=== PATIENT | female | born 1995 | race African-American/Black ===

== ENCOUNTER 2018-09-04 20:08 | Emergency (ER) | payer BC ==
[~2018-09-04] VITALS: Ht 162.6 cm; Wt 100.0 kg
[2018-09-04 20:14] VITALS: Ht 162.6 cm; Wt 100.0 kg
[2018-09-04] MEDS ORDERED: HYDROCHLOROTHIA25 MG PO (20:14)
[2018-09-04 20:49] LABS: BASOPHILS 0.3 % (0-2); EOSINOPHILS 0.8 % (0-7); HEMATOCRIT 42.5 % (36.0-48.0); HEMOGLOBIN 14.3 g/dL (12-16); IMMATURE GRANULOCYTES 0.1 % (0-5); LYMPHOCYTES 37.8 % (15-50); MCH 29.5 pg (26.0-34.0); MCHC 33.6 g/dL (31.0-37.0); MCV 87.8 fL (80.0-100.0); MEAN PLATELET VOLUME 10.2 fL (7.4-10.4); PLATELET COUNT 281 10x3/uL (130-400); RBC 4.84 10x6/uL (4.00-5.40); RDW 14.3 % (11.5-14.5); WBC 8.9 10x3/uL (4.8-10.8)
[2018-09-04 20:55] LABS: APPEARANCE CLEAR (CLEAR); BILIRUBIN NEGATIVE (NEGATIVE); COLOR YELLOW (YELLOW); GLUCOSE NEGATIVE (NEGATIVE); KETONE NEGATIVE (NEGATIVE); NITRITE NEGATIVE (NEGATIVE); PROTEIN NEGATIVE (NEGATIVE); UROBILINOGEN NORMAL (NORMAL)
[2018-09-04 21:07] LABS: ALBUMIN 3.8 g/dL (3.4-5.0); ALKALINE PHOSPHATASE 77 U/L (46-116); ALT (SGPT) 36 U/L (10-68); BILIRUBIN - TOTAL 0.37 mg/dL (0.2-1.3); CALC OSMOLALITY 276 mosm/kg (275-300); CALCIUM 8.9 mg/dL (8.5-10.1); CARBON DIOXIDE 27.2 mmol/L (21.0-32.0); CHLORIDE - SERUM 101 mmol/L (98-107); CREATININE - SERUM 0.9 mg/dL (0.6-1.3); GLUCOSE 89 mg/dL (74-106); POTASSIUM - SERUM 3.1 mmol/L (3.5-5.1); SODIUM 139 mmol/L (136-145); UREA NITROGEN 13 mg/dL (7-18); eGFR NON AFRICAN AMERICAN 81 mL/min (90-120)
[2018-09-04 21:15] LABS: AMYLASE - SERUM 124 U/L (25-115); LIPASE 120 U/L (73-393)
[2018-09-04 21:20] LABS: TROPONIN-I < 0.017 ng/mL (0.000-0.060)
[2018-09-04 21:43] LABS: HCG URINE NEGATIVE (NEGATIVE)
[2018-09-04] MEDS ORDERED: CARAFATE1 G PO (23:48)
[2018-09-04] MEDS ORDERED: CYCLOBENZAPRINE10 MG PO (23:48)
[2018-09-04] MEDS ORDERED: LEVSIN/ANASP0.125 MG PO (23:48)
[2018-09-04] MEDS ORDERED: ACETAMINOPHEN500 M1 PO (23:48)
[2018-09-04 23:56] VITALS: BP 128/79
== END 2018-09-04 23:56 | disposition home or self-care (01) ==
LOC: D.ER 20:08
PROVIDERS: Family Medicine
DX: K21.9 Gastro-esophageal reflux disease without esophagitis (principal); R10.13 Epigastric pain; I10 Essential (primary) hypertension

== ENCOUNTER 2018-10-16 21:32 | Emergency (ER) | payer SELFPAY ==
[~2018-10-16] VITALS: Ht 162.6 cm; Wt 100.9 kg
[~2018-10-16 21:32] MED LIST: ACETAMINOPHEN500 M1 PO; CARAFATE1 G PO; CYCLOBENZAPRINE10 MG PO; HYDROCHLOROTHIA25 MG PO; LEVSIN/ANASP0.125 MG PO
[2018-10-16 21:48] VITALS: Ht 162.6 cm; Wt 100.9 kg
[2018-10-16 22:49] LABS: BASOPHILS 0.4 % (0-2); EOSINOPHILS 1.4 % (0-7); HEMATOCRIT 41.1 % (36.0-48.0); HEMOGLOBIN 14.1 g/dL (12-16); IMMATURE GRANULOCYTES 0.4 % (0-5); LYMPHOCYTES 49.5 % (15-50); MCHC 34.3 g/dL (31.0-37.0); MCV 84.6 fL (80.0-100.0); MEAN PLATELET VOLUME 9.9 fL (7.4-10.4); MONOCYTES 11.2 % (2-11); NEUTROPHILS 37.1 % (40-80); PLATELET COUNT 315 10x3/uL (130-400); RBC 4.86 10x6/uL (4.00-5.40); RDW 13.8 % (11.5-14.5); WBC 8.6 10x3/uL (4.8-10.8)
[2018-10-16 22:56] LABS: APPEARANCE CLEAR (CLEAR); BILIRUBIN NEGATIVE (NEGATIVE); COLOR YELLOW (YELLOW); GLUCOSE NEGATIVE (NEGATIVE); HCG URINE POSITIVE (NEGATIVE); KETONE NEGATIVE (NEGATIVE); NITRITE NEGATIVE (NEGATIVE); PROTEIN NEGATIVE (NEGATIVE); UROBILINOGEN NORMAL (NORMAL)
[2018-10-16 23:06] LABS: ALBUMIN 3.7 g/dL (3.4-5.0); ALKALINE PHOSPHATASE 85 U/L (46-116); ALT (SGPT) 16 U/L (10-68); BILIRUBIN - TOTAL 0.28 mg/dL (0.2-1.3); CALC OSMOLALITY 278 mosm/kg (275-300); CALCIUM 8.8 mg/dL (8.5-10.1); CARBON DIOXIDE 25.6 mmol/L (21.0-32.0); CHLORIDE - SERUM 104 mmol/L (98-107); GLUCOSE 93 mg/dL (74-106); POTASSIUM - SERUM 3.5 mmol/L (3.5-5.1); PROTEIN - SERUM 8.3 g/dL (6.4-8.2); SODIUM 140 mmol/L (136-145); UREA NITROGEN 13 mg/dL (7-18); eGFR NON AFRICAN AMERICAN 72 mL/min (90-120)
[2018-10-16 23:12] LABS: AMYLASE - SERUM 105 U/L (25-115); HCG - QUANTITATIVE (MATERNAL) 211 mIU/mL; LIPASE 158 U/L (73-393)
[2018-10-16 23:14] LABS: TROPONIN-I < 0.017 ng/mL (0.000-0.060)
[2018-10-17] MEDS ORDERED: ZOFRAN ODT4 MG/UDTAB PO (00:17)
[2018-10-17] MEDS ORDERED: PEPCID AC20 MG PO (00:17)
[2018-10-17 00:26] VITALS: BP 124/90
== END 2018-10-17 00:27 | disposition home or self-care (01) ==
LOC: D.ER 21:32
PROVIDERS: Family Medicine
DX: O99.611 Diseases of the digestive system complicating pregnancy, first trimester (principal); K92.89 Other specified diseases of the digestive system; Z3A.08 8 weeks gestation of pregnancy; K21.9 Gastro-esophageal reflux disease without esophagitis; R10.11 Right upper quadrant pain

== ENCOUNTER → 2019-04-25 14:29 | Outpatient (CLI) | payer SELFPAY ==
[2018-10-16 21:48] VITALS: BMI 38.2
[~2019-04-25 14:29] MED LIST changes: +PEPCID AC20 MG PO; +ZOFRAN ODT4 MG/UDTAB PO
[2019-04-25 14:54] LABS: BASOPHILS 0.2 % (0-2); EOSINOPHILS 1.2 % (0-7); HEMATOCRIT 31.4 % (36.0-48.0); HEMOGLOBIN 10.7 g/dL (12-16); IMMATURE GRANULOCYTES 1.2 % (0-5); LYMPHOCYTES 26.4 % (15-50); MCH 27.3 pg (26.0-34.0); MCHC 34.1 g/dL (31.0-37.0); MCV 80.1 fL (80.0-100.0); MEAN PLATELET VOLUME 10.1 fL (7.4-10.4); MONOCYTES 10.9 % (2-11); NEUTROPHILS 60.1 % (40-80); RBC 3.92 10x6/uL (4.00-5.40); RDW 13.2 % (11.5-14.5)
[2019-04-25 14:56] LABS: PLATELET COUNT 220 10x3/uL (130-400)
[2019-04-25 15:32] LABS: ALBUMIN 2.6 g/dL (3.4-5.0); ALKALINE PHOSPHATASE 133 U/L (46-116); ALT (SGPT) 26 U/L (10-68); BILIRUBIN - INDIRECT 0.19 mg/dL (0.00-1.00); BILIRUBIN - TOTAL 0.23 mg/dL (0.2-1.3); CALC OSMOLALITY 273 mosm/kg (275-300); CALCIUM 8.2 mg/dL (8.5-10.1); CARBON DIOXIDE 22.1 mmol/L (21.0-32.0); CHLORIDE - SERUM 105 mmol/L (98-107); CREATININE - SERUM 0.6 mg/dL (0.6-1.3); GLUCOSE 95 mg/dL (74-106); POTASSIUM - SERUM 3.9 mmol/L (3.5-5.1); PROTEIN - SERUM 6.4 g/dL (6.4-8.2); SODIUM 138 mmol/L (136-145); UREA NITROGEN 8 mg/dL (7-18); URIC ACID 3.2 mg/dL (2.6-7.2); eGFR NON AFRICAN AMERICAN > 90 mL/min (90-120)
[2019-04-25 15:33] LABS: BILIRUBIN - DIRECT 0.04 mg/dL (0.00-0.30)
[2019-04-25 17:05] LABS: APPEARANCE CLEAR (CLEAR); BILIRUBIN NEGATIVE (NEGATIVE); COLOR YELLOW (YELLOW); GLUCOSE NEGATIVE (NEGATIVE); KETONE NEGATIVE (NEGATIVE); NITRITE NEGATIVE (NEGATIVE); PROTEIN NEGATIVE (NEGATIVE); SPECIFIC GRAVITY 1.015 (1.005-1.020); UROBILINOGEN NORMAL (NORMAL)
== END | disposition home or self-care (01) ==
LOC: D.LDO 14:29
PROVIDERS: ATTEND Student in an Organized Health Care Education/Training Program
DX: O26.90 Pregnancy related conditions, unspecified, unspecified trimester (principal)

== ENCOUNTER → 2019-05-01 09:03 | Outpatient (CLI) | payer BC ==
[2018-10-16 21:48] VITALS: BMI 38.2
== END | disposition home or self-care (01) ==
LOC: D.LDO 09:03
PROVIDERS: ATTEND Obstetrics & Gynecology
DX: O26.893 Other specified pregnancy related conditions, third trimester (principal); Z3A.32 32 weeks gestation of pregnancy

== ENCOUNTER → 2019-05-29 15:38 | Outpatient (CLI) | payer BC ==
[2018-10-16 21:48] VITALS: BMI 38.2
[2019-06-16 21:00] VITALS: BMI 43.0
== END | disposition home or self-care (01) ==
LOC: D.LDO 15:38
PROVIDERS: ATTEND Student in an Organized Health Care Education/Training Program
DX: O16.9 Unspecified maternal hypertension, unspecified trimester (principal)

== ENCOUNTER → 2019-06-04 15:57 | Outpatient (CLI) | payer BC ==
[2018-10-16 21:48] VITALS: BMI 38.2
[2019-06-16 21:00] VITALS: BMI 43.0
== END | disposition home or self-care (01) ==
LOC: D.LDO 15:57
PROVIDERS: ATTEND Student in an Organized Health Care Education/Training Program
DX: O35.9XX0 Maternal care for (suspected) fetal abnormality and damage, unspecified, not applicable or unspecified (principal)

== ENCOUNTER 2019-06-11 10:55 | Outpatient (CLI) | payer BC ==
[2018-10-16 21:48] VITALS: BMI 38.2
[2019-06-16 21:00] VITALS: BMI 43.0
== END 2019-06-11 11:35 | disposition home or self-care (01) ==
LOC: D.LDO 10:55
PROVIDERS: ATTEND Student in an Organized Health Care Education/Training Program
DX: O47.1 False labor at or after 37 completed weeks of gestation (principal); Z3A.38 38 weeks gestation of pregnancy

== ENCOUNTER 2019-06-16 20:23 | Inpatient (IN) | payer BC, MEDICAID ==
[~2019-06-16] VITALS: Ht 162.6 cm; Wt 113.4 kg
[2019-06-16 21:00] VITALS: BP 120/80; Ht 162.6 cm; Wt 113.4 kg
[2019-06-16 21:03] LABS: HEMATOCRIT 33.3 % (36.0-48.0); HEMOGLOBIN 10.6 g/dL (12-16); MCH 25.1 pg (26.0-34.0); MCHC 31.8 g/dL (31.0-37.0); MCV 78.7 fL (80.0-100.0); MEAN PLATELET VOLUME 10.3 fL (7.4-10.4); RBC 4.23 10x6/uL (4.00-5.40); RDW 14.6 % (11.5-14.5); WBC 7.6 10x3/uL (4.8-10.8)
[2019-06-16 21:04] LABS: APPEARANCE CLEAR (CLEAR); BILIRUBIN NEGATIVE (NEGATIVE); COLOR YELLOW (YELLOW); GLUCOSE NEGATIVE (NEGATIVE); KETONE NEGATIVE (NEGATIVE); NITRITE NEGATIVE (NEGATIVE); PROTEIN NEGATIVE (NEGATIVE); SPECIFIC GRAVITY 1.015 (1.005-1.020); UROBILINOGEN NORMAL (NORMAL)
[2019-06-16 21:06] LABS: BACTERIA MANY /hpf (NEGATIVE); EPITHELIAL CELLS 0-5 /hpf (0-5); RED CELLS - URINE 0-5 /hpf (0-5); WHITE CELLS - URINE 0-5 /hpf (NEGATIVE)
--- NOTE | 2019-06-18 04:19 | NUR ---
PT AMBULATED TO ROOM 1273 FOR CARE AT THIS TIME
--- NOTE | 2019-06-18 04:45 | NUR ---
PT UP TO SHOWER, SIGNIFICANT OTHER AT HER SIDE FOR ASSISTANCE. ENCOURAGED TO CALL WITH ANY NEEDS. WILL CONTINUE TO MONITOR.
[2019-06-18 07:13] LABS: RAPID PLASMA REAGIN Non Reactive (Non Reactive)
[2019-06-18 07:14] VITALS: BP 116/65
--- NOTE | 2019-06-18 07:14 | NUR ---
RECEIVED PT LYING IN SEMI-CALABRESE'S POSITION. PT AWAKE. VSS. HRRR WITHOUT AUDIBLE MURMUR. BBS CLEAR. BS X 4. ABDOMEN SOFT/NON-DISTENDED. FUNDUS FIRM AT U/1. RUBRA LOCHIA SMALL AMT. PT DENIES HEAVY BLEEDING OR PASSING CLOTS. PT INSTRUCTED TO NOTIFY NURSE OF HEAVY BLEEDING, SOAKING PERIPAD IN ONE HOUR, PASSING CLOTS SIZE OF EGG OR BIGGER. PERINEUM WITHOUT EDEMA. NEG HOMANS' SIGN. PPP. NO EDEMA NOTED TO BLE. SL SITE CLEAR. PT DENIES PAIN OR NEEDS. SR UP X2. CALL LIGHT IN REACH.
--- NOTE | 2019-06-18 08:51 | NUR ---
Nicolette Avendano [birth year] S: Patient states this is her first baby. She delivered late last night. has ate twice since . Last time was around 2 something this morning. has done really good with latching. She latches about 15 mintues. Denies pain or discomfort with latching . States when infant came in nursery this morning she was awake but it has been hard to wake her to nurse. Thanked CLC for showing different positions with and educational. Verbally agrees to work on comfortable latching positions for her and . Denies questions or concerns at this time. O: Patient sitting up in bed attempting to breastfeed infant in cradle position on the right breast. Infant is sleeping and family member at bedside talking and trying to help stimulate to wake. Praised for . Informed patient takes time, practice, and patience. Explained breastmilk composition, supply and demand, positions, how to verify is latched correctly, and ways to stimulate infant to wake to feed. Explain skin to skin and encouraged to help with infant led . Infant was placed on patient for skin to skin. would move her head, suck on mom chest and moved her entire body to the right breast. Patient helped position in laid back position. Infant would attempt to suck but stopped. Infant did this several times. Encouraged patient to give it some time is capable to latch, she just needs some time. Asked if any questions or concerns? Please let nursery staff know if any questions concerns or if you need help with . A: Patient first baby, learning how to breastfeed with . P: Continue to promote exclusively . Zach Watkins, [facility]
--- NOTE | 2019-06-18 09:26 | NUR ---
MOTRIN 600MG, GIVEN PO, FOR COMPLAINTS OF 3-4/10 ABDOMINAL BURNING, STINGING, CRAMPING PAIN. DENIES NEED FOR ANYTHING. SIDE RAILS X2, BED IN LOWEST POSITION, CALL LIGHT WITHIN REACH. UP AD CHRISTIAN. DESIRES PONCHO. IZA FRANCO, [facility] ADNS.
--- NOTE | 2019-06-18 11:00 | NUR ---
PT SITTING UP IN BED. VISITS WITH FAMILY. DENIES C/O OR NEEDS.
[2019-06-18 12:15] VITALS: BP 108/68
--- NOTE | 2019-06-18 12:15 | NUR ---
PT SITTING UP IN BED. VSS. PT DENIES HEAVY BLEEDING. RUBRA SEROSA NOTED TO PERIPAD. PT DENIES PAIN OR NEEDS.
--- NOTE | 2019-06-18 13:45 | NUR ---
PT LYING SUPINE IN BED. WAKES UPON ENTERING ROOM. DENIES NEEDS OR C/O.
--- NOTE | 2019-06-18 15:00 | NUR ---
PT SITTING UPRIGHT IN BED. VISITS WITH FAMILY. DENIES HEAVY BLEEDING OR PASSING CLOTS. DENIES PAIN OR NEEDS.
--- NOTE | 2019-06-18 17:00 | NUR ---
DR ISLAS VISITS WITH PT.
--- NOTE | 2019-06-18 17:11 | NUR ---
PT REQUESTS AND RECEIVES PERIPADS AND PANTIES. DENIES PAIN OR OTHER C/O.
--- NOTE | 2019-06-18 19:56 | NUR ---
PT REQUEST A MOTRIN. SHE STATES SHE IS HURTING WITH A PAIN LEVEL OF 5.
--- NOTE | 2019-06-18 20:15 | NUR ---
MOTRIN 600 MG GIVEN PO.
[2019-06-18 20:21] VITALS: BP 126/80
--- NOTE | 2019-06-18 21:15 | NUR ---
PT IS DOING WELL. FAMILY AT BEDSIDE. INDEPENDENT IN ROOM. NO C/O OR NEEDS AT THIS TIME.
--- NOTE | 2019-06-18 22:20 | NUR ---
PT DOING WELL. NO C/O OR NEEDS.
--- NOTE | 2019-06-19 00:10 | NUR ---
NO C/O AT THIS TIME. NO NEEDS. PT RESTING WELL.
--- NOTE | 2019-06-19 01:42 | NUR ---
PT SITTING UP IN BED, FAMILY REMAINS AT BEDSIDE FOR SUPPORT. IN OPEN CRIB AT BEDSIDE. PT DENIES PAIN OR NEEDS AT THIS TIME, WILL CONTINUE TO MONITOR.
--- NOTE | 2019-06-19 03:35 | NUR ---
PATIENT SITTING UP IN BED , TOILET PAPER PROVIDED PER REQUEST, NO FURTHER NEEDS IDENTIFIED. WILL CONTINUE TO MONITOR
--- NOTE | 2019-06-19 05:00 | NUR ---
PT IS RESTING WELL WITHOUT C/O. NO C/O PAIN OR DISCOMFORT. NO NEEDS AT THIS TIME.
[2019-06-19 06:25] LABS: BASOPHILS 0.2 % (0-2); EOSINOPHILS 1.7 % (0-7); HEMATOCRIT 29.6 % (36.0-48.0); HEMOGLOBIN 9.2 g/dL (12-16); IMMATURE GRANULOCYTES 0.9 % (0-5); LYMPHOCYTES 34.1 % (15-50); MCH 24.7 pg (26.0-34.0); MCHC 31.1 g/dL (31.0-37.0); MCV 79.6 fL (80.0-100.0); MEAN PLATELET VOLUME 10.2 fL (7.4-10.4); NEUTROPHILS 53.1 % (40-80); PLATELET COUNT 282 10x3/uL (130-400); RBC 3.72 10x6/uL (4.00-5.40); RDW 14.6 % (11.5-14.5); WBC 10.1 10x3/uL (4.8-10.8)
--- NOTE | 2019-06-19 07:00 | NUR ---
dr johnson here to see pt.
[2019-06-19 08:01] VITALS: BP 125/82
--- NOTE | 2019-06-19 08:07 | NUR ---
SITTING UP IN BED. ASSESSMENT DONE. DENIES PAIN- DENIES NEEDS. FUNDUS UU/FIRM.SCANT LOCHIA NOTED ON PAD. SALINE LOCK REMOVED WITH CATH TIP INTACT-PRESSURE HELD AND BANDAIDE APPLIED.
--- NOTE | 2019-06-19 08:20 | NUR ---
Nicolette Avendano [birth year] S: Patient states is going well. ate recently for 15 minutes on one breast and 20 minutes on the other. Denies nipple pain with . States she will be discharged tomorrow. Verbally agrees to let nursery staff know if any questions or concerns about . O: Patient sitting up in bed eating breakfast. FOB holding on sofa. Family member in room also Asked how are things going with ? Any concerns with sore nipples or pain with latching infant? Encouraged to continue to observe feeding cues and practice responsive feeeding. Infant should nurse 8-12 times in 24 hours. Please let nursery staff know if any questions or concerns regarding . A: Patient appears confident with due to no questions or concerns. P: Continue to promote exclusively during hospital visit. Zach Watkins, CLC
--- NOTE | 2019-06-19 09:58 | NUR ---
RESTING IN BED- DENIES NEEDS. FAMILY AT BEDSIDE.
[2019-06-19 13:08] VITALS: BP 123/78
--- NOTE | 2019-06-19 13:08 | NUR ---
RECEIVED REPORT FROM Kristy RICHARDSON RN. PT SITTING UP IN BED. VISITS WITH FAMILY. VSS. FUNDUS FIRM AT U/2. PT DENIES HEAVY BLEEDING OR PASSING CLOTS. STATES VOIDING WITHOUT DIFFICULTY. STATES HAD BM EARLIER TODAY. PT C/O ABDOMINAL CRAMPING. MOTRIN 600 MG GIVEN PO ORDERED. PT INSTRUCTED ON MED. VERBALIZES UNDERSTANDING. FRESH ICE WATER PROVIDED.
--- NOTE | 2019-06-19 14:30 | NUR ---
PT SITTING UP IN BED. INFANT. DENIES C/O PAIN OR NEEDS.
--- NOTE | 2019-06-19 16:17 | NUR ---
DR ISLAS VISITS WITH PT. ORDERS RECEIVED TO DISCHARGE TO ROOMING IN.
--- NOTE | 2019-06-19 17:00 | NUR ---
DISCHARGE INSTRUCTIONS GIVEN TO PT. PT VERBALIZES UNDERSTANDING OF ALL INSTRUCTIONS. COPIES GIVEN TO PT. PT INSTRUCTED ON ROOMING IN POLICY. READS OVER FORM AND SIGNS. PT DISCHARGED IN STABLE CONDITION VIA AMBULATORY TO ROOM 1220. PT ORIENTED TO ROOM AND BED. LINENS AND TOILETRIES PROVIDED.
== END 2019-06-19 17:00 | disposition home or self-care (01) | DRG 807 ==
LOC: D.LD 20:23
PROVIDERS: ADMIT Student in an Organized Health Care Education/Training Program; ATTEND Student in an Organized Health Care Education/Training Program
PROC: 3E033VJ Introduction of Other Hormone into Peripheral Vein, Percutaneous Approach (ICD-10-PCS; 2019-06-17)
PROC: 3E0P7VZ Introduction of Hormone into Female Reproductive, Via Natural or Artificial Opening (ICD-10-PCS; 2019-06-17)
PROC: 10907ZC Drainage of Amniotic Fluid, Therapeutic from Products of Conception, Via Natural or Artificial Opening (ICD-10-PCS; 2019-06-17)
PROC: 10E0XZZ Delivery of Products of Conception, External Approach (ICD-10-PCS; principal; 2019-06-18)
PROC: 0UQMXZZ Repair Vulva, External Approach (ICD-10-PCS; 2019-06-18)
DX: O16.4 Unspecified maternal hypertension, complicating childbirth (principal); Z37.0 Single live birth; Z3A.39 39 weeks gestation of pregnancy; O99.824 Streptococcus B carrier state complicating childbirth; O70.0 First degree perineal laceration during delivery

== ENCOUNTER → 2019-10-23 08:19 | Outpatient (CLI) | payer BC ==
[2019-06-16 21:00] VITALS: BMI 43.0
== END | disposition home or self-care (01) ==
LOC: D.US 08:19
PROVIDERS: ATTEND Internal Medicine Gastroenterology
DX: R10.10 Upper abdominal pain, unspecified (principal); R11.2 Nausea with vomiting, unspecified; R63.4 Abnormal weight loss; R52 Pain, unspecified

== ENCOUNTER 2020-01-22 05:45 | Day surgery (SDC) | payer BC ==
[~2020-01-22] VITALS: Ht 162.6 cm; Wt 99.8 kg
[2020-01-22 06:18] VITALS: BP 112/71; Ht 162.6 cm; Wt 99.8 kg
[2020-01-22 06:22] LABS: HEMATOCRIT 39.4 % (36.0-48.0); HEMOGLOBIN 12.6 g/dL (12-16); MCH 26.2 pg (26.0-34.0); MCV 81.9 fL (80.0-100.0); MEAN PLATELET VOLUME 9.8 fL (7.4-10.4); RBC 4.81 10x6/uL (4.00-5.40); RDW 15.9 % (11.5-14.5); WBC 5.9 10x3/uL (4.8-10.8)
[2020-01-22 06:57] LABS: HCG SERUM NEGATIVE (NEGATIVE)
[2020-01-22] MEDS ORDERED: HYDROCODON-ACE1 EAC7 PO (08:43)
--- NOTE | 2020-01-22 09:03 | NUR ---
OPA IN AIRWAY ON ADMIT
== END 2020-01-22 10:45 | disposition home or self-care (01) ==
LOC: D.OPS 05:45 → D.PAN 08:00 → D.OPS 10:45
PROVIDERS: Anesthesiology; ATTEND Surgery
DX: K80.20 Calculus of gallbladder without cholecystitis without obstruction (principal); I10 Essential (primary) hypertension; K21.9 Gastro-esophageal reflux disease without esophagitis; E66.01 Morbid (severe) obesity due to excess calories